=== PATIENT | male | born 1995 | race Caucasian/White ===

== ENCOUNTER → 2017-02-12 | Outpatient (CLI) | payer BC ==
[~2017-02-12] MED LIST: FAMO20TA11 PO; PRLSR20 PO; SUCR1TAB29 PO
[2017-02-12 16:21] LABS: BASO % 0.2 %; BASO ABS # 0.04 K/uL (0-0.2); COMPLETE YES; EOS % 0.4 %; HEMATOCRIT 43.6 % (42-52); IG% 0.5 %; LYMPH % 5.9 %; LYMPH ABS # 1.24 K/uL (1.2-3.4); MEAN CELL VOLUME 88.4 fL (80-100); MEAN CORPUSCULAR HEMOGLOBIN 30.8 pg (25-34); MEAN CORPUSCULAR HGB CONC 34.9 g/dl (32-36); MEAN PLATELET VOLUME 10.5 fL (7.4-10.4); MONO % 4.9 %; NEUT % 88.1 %; PLATELET COUNT 242 K/uL (130-400); RED BLOOD COUNT 4.93 M/uL (4.7-6.1); WHITE BLOOD COUNT 21.13 K/uL (4.8-10.8)
[2017-02-12 16:29] LABS: ALT/SGPT 50 U/L (12-78); AMYLASE 34 U/L (25-115); AST/SGOT 24 U/L (15-37); BLOOD UREA NITROGEN 16 mg/dl (7-18); BUN/CREATININE RATIO 15.8 (10-20); CALCIUM 9.6 mg/dl (8.5-10.1); CARBON DIOXIDE 27 mmol/L (21-32); CHLORIDE 103 mmol/L (98-107); CREATININE 1.02 mg/dl (0.60-1.40); GLUCOSE 78 mg/dl (70-99); POTASSIUM 3.9 mmol/L (3.5-5.1); SODIUM 138 mmol/L (136-145)
[2017-02-12 16:32] LABS: ALB/GLOB RATIO 1.4 (0.9-2); ALKALINE PHOSPHATASE 57 U/L (45-117)
== END | disposition home or self-care (01) ==
LOC: C.LABSPEC 15:54
PROVIDERS: ATTEND Family Medicine
DX: R10.84 Generalized abdominal pain (principal)

== ENCOUNTER 2017-02-13 18:35 | Emergency (ER) | payer BC ==
[~2017-02-13] VITALS: Ht 170.2 cm; Wt 78.9 kg
[2017-02-13 18:42] VITALS: TEMP 36.8; Ht 170.2 cm; Wt 78.9 kg
[2017-02-13] MEDS ORDERED: KETOROLAC TROMETHAMINE 30 MG/ML VIAL IV STA (19:15)
--- NOTE | 2017-02-13 19:43 | DIAGNOSTIC IMAGING REPORT ---
CHEST ONE VIEW PORTABLE CLINICAL HISTORY: 21 years-old Male presenting with chest pain. TECHNIQUE: Portable upright AP view of the chest was obtained. COMPARISON: None. FINDINGS: Cardiomediastinal silhouette normal. Lungs and pleural spaces clear. Osseous structures normal. Upper abdomen normal. IMPRESSION: 1. No acute cardiopulmonary disease. Electronically signed by: Mason Boucher M.D. 02/13/2017 7:41 PM Dictated Date/Time: 02/13/2017 7:41 PM
[2017-02-13 20:06] LABS: ALT/SGPT 45 U/L (12-78); BLOOD UREA NITROGEN 16 mg/dl (7-18); BUN/CREATININE RATIO 16.8 (10-20); CALCIUM 8.9 mg/dl (8.5-10.1); CARBON DIOXIDE 28 mmol/L (21-32); CHLORIDE 106 mmol/L (98-107); CREATININE 0.92 mg/dl (0.60-1.40); GLUCOSE 93 mg/dl (70-99); POTASSIUM 3.6 mmol/L (3.5-5.1); SODIUM 140 mmol/L (136-145)
[2017-02-13 20:11] LABS: ALKALINE PHOSPHATASE 49 U/L (45-117); AST/SGOT 23 U/L (15-37)
[2017-02-13] MEDS ORDERED: PRLSR20 PO (20:32)
[2017-02-13] MEDS ORDERED: SUCR1TAB29 PO (20:32)
[2017-02-13 20:59] LABS: BASO % 0.6 %; BASO ABS # 0.05 K/uL (0-0.2); COMPLETE YES; EOS % 2.4 %; HEMATOCRIT 42.2 % (42-52); IG% 0.1 %; LYMPH % 23.9 %; LYMPH ABS # 1.86 K/uL (1.2-3.4); MEAN CELL VOLUME 87.9 fL (80-100); MEAN CORPUSCULAR HEMOGLOBIN 31.7 pg (25-34); MEAN PLATELET VOLUME 10.3 fL (7.4-10.4); MONO % 9.5 %; NEUT % 63.5 %; PLATELET COUNT 243 K/uL (130-400); WHITE BLOOD COUNT 7.78 K/uL (4.8-10.8)
--- NOTE | 2017-02-13 21:32 | DIAGNOSTIC IMAGING REPORT ---
ABDOMEN 2 VIEWS HISTORY: 21 years-old Male abd pain acute generalized abdominal pain COMPARISON: Chest radiograph 02/13/2017 TECHNIQUE: Upright and supine views of the abdomen FINDINGS: No pneumoperitoneum on the upright projection. The bowel gas pattern is nonobstructive. Moderate formed stool of the ascending colon noted. No urolith. No organomegaly or fracture. IMPRESSION: 1. Nonobstructive bowel gas pattern without pneumoperitoneum. 2. No urolith identified. The above report was generated using voice recognition software. It may contain grammatical, syntax or spelling errors. Electronically signed by: Pal Mcintosh M.D. 02/13/2017 9:30 PM Dictated Date/Time: 02/13/2017 9:29 PM
[2017-02-13] MEDS ORDERED: FAMO20TA11 PO (21:49)
[2017-02-13 22:02] VITALS: BP 122/61; PULSE 67; O2SAT 99
--- NOTE | 2017-02-13 22:12 | EMERGENCY ROOM VISIT NOTE ---
History Report prepared by Jodee: Mohan Dunn Under the Supervision of: Dr. Danny Gonzalez D.O. First contact with patient: 19:08 Chief Complaint: CARDIAC ASSESSMENT Stated Complaint: CHEST PAIN,SOB History of Present Illness The patient is a 21 year old male who presents to the Emergency Room with complaints of intermittent epigastric abdominal pain pain beginning five days ago. The patient states that his pain has moved towards the left side. He was seen by his PCP yesterday for his symptoms and was scheduled for an ultrasound. He had his abdominal ultrasound this morning which was normal. The patient states that his pain can be present for one hour to a few minutes at a time. He states that he experienced some shortness of breath since two days ago and feels that it is present along with his pain. His abdominal pain is worsened with deep breathing. Patient denies swelling of calves, recent trips, history of immobilization or recent surgery, prior history of DVT, hemoptysis, history of malignancy, history of smoking, or control/estrogen use. Patient denies diabetes, hypertension, hyperlipidemia, CAD, history of sudden at a young age, and smoking. The patient's pain is not worsened with eating or drinking. He also denies any cough, runny nose, bloody stool, or diarrhea. He notes that his left chest felt sore to the touch a few days ago, but feels that it might be related to playing football. Source of History: patient Onset: Five days ago Position: abdomen (epigastric) Timing: intermittent Modifying Factors (Worsening): breathing (deep) Associated Symptoms: + SOB (beginning two days ago), No fevers, No cough, No hematochezia, No diarrhea Note: The patient denies leg swelling. Review of Systems See HPI for pertinent positives & negatives. A total of 10 systems reviewed and were otherwise negative. Past Medical & Surgical Medical Problems: (1) No Known Active Medical Problems Family History No pertinent family history stated. Social History Smoking Status: Never Smoker Housing Status: lives with family Current/Historical Medications Scheduled Famotidine (Pepcid), 20 MG PO DAILY Omeprazole (Prilosec), 1 TAB PO DAILY Sucralfate (Carafate), 1 GM PO ACHS Allergies Coded Allergies: Penicillins (Verified Allergy, Intermediate, "HAND SWELLING", 09/18/15) Physical Exam Vital Signs Date Time Temp Pulse Resp B/P (MAP) Pulse Ox O2 Delivery O2 Flow Rate FiO2 02/13/17 22:02 67 20 122/61 99 02/13/17 20:24 80 02/13/17 20:16 71 20 118/65 97 Room Air 02/13/17 19:26 98 Room Air 02/13/17 18:42 36.8 76 20 139/75 97 Room Air Physical Exam GENERAL: Sitting up in bed, alert, well appearing, well nourished, no distress, non-toxic EYE EXAM: normal conjunctiva. OROPHARYNX: no exudate, no erythema, lips, buccal mucosa, and tongue normal and mucous membranes are moist NECK: supple, no nuchal rigidity, no adenopathy, non-tender LUNGS: Clear to auscultation. Normal chest wall mechanics HEART: no murmurs, S1 normal and S2 normal CHEST: acute reproducible tenderness along the left upper sternum. ABDOMEN: abdomen soft, non-tender, normo-active bowel sounds, no masses, no rebound or guarding. BACK: Back is symmetrical on inspection and there is no deformity, no midline tenderness, no CVA tenderness. SKIN: no rashes and no bruising UPPER EXTREMITIES: upper extremities are grossly normal. LOWER EXTREMITIES: No pitting edema. Calves equal bilaterally. NEURO EXAM: Normal sensorium, cranial nerves II-XII grossly intact, normal speech, no gross weakness of arms, no gross weakness of legs. Medical Decision & Procedures ER Provider Diagnostic Interpretation: Radiology results as stated below per my review and the radiologist's interpretation: CHEST ONE VIEW PORTABLE FINDINGS: Cardiomediastinal silhouette normal. Lungs and pleural spaces clear. Osseous structures normal. Upper abdomen normal. IMPRESSION: 1. No acute cardiopulmonary disease. Electronically signed by: Mason Boucher M.D. 02/13/2017 7:41 PM ABDOMEN 2 VIEWS FINDINGS: No pneumoperitoneum on the upright projection. The bowel gas pattern is nonobstructive. Moderate formed stool of the ascending colon noted. No urolith. No organomegaly or fracture. IMPRESSION: 1. Nonobstructive bowel gas pattern without pneumoperitoneum. 2. No urolith identified. The above report was generated using voice recognition software. It may contain grammatical, syntax or spelling errors. Electronically signed by: Pal Mcintosh M.D. 02/13/2017 9:30 PM Laboratory Results 11/10/17 19:26 Red Blood Count 4.80, Mean Corpuscular Volume 87.9, Mean Corpuscular Hemoglobin 31.7, Mean Corpuscular Hemoglobin Concent 36.0, Mean Platelet Volume 10.3, Neutrophils (%) (Auto) 63.5, Lymphocytes (%) (Auto) 23.9, Monocytes (%) (Auto) 9.5, Eosinophils (%) (Auto) 2.4, Basophils (%) (Auto) 0.6, Neutrophils # (Auto) 4.93, Lymphocytes # (Auto) 1.86, Monocytes # (Auto) 0.74, Eosinophils # (Auto) 0.19, Basophils # (Auto) 0.05 02/13/17 19:26 Test 02/13/17 19:26 White Blood Count 7.78 K/uL (4.8-10.8) Red Blood Count 4.80 M/uL (4.7-6.1) Hemoglobin 15.2 g/dL (14.0-18.0) Hematocrit 42.2 % (42-52) Mean Corpuscular Volume 87.9 fL (80-100) Mean Corpuscular Hemoglobin 31.7 pg (25-34) Mean Corpuscular Hemoglobin Concent 36.0 g/dl (32-36) Platelet Count 243 K/uL (130-400) Mean Platelet Volume 10.3 fL (7.4-10.4) Neutrophils (%) (Auto) 63.5 % Lymphocytes (%) (Auto) 23.9 % Monocytes (%) (Auto) 9.5 % Eosinophils (%) (Auto) 2.4 % Basophils (%) (Auto) 0.6 % Neutrophils # (Auto) 4.93 K/uL (1.4-6.5) Lymphocytes # (Auto) 1.86 K/uL (1.2-3.4) Monocytes # (Auto) 0.74 K/uL (0.11-0.59) Eosinophils # (Auto) 0.19 K/uL (0-0.5) Basophils # (Auto) 0.05 K/uL (0-0.2) RDW Standard Deviation 41.2 fL (36.4-46.3) RDW Coefficient of Variation 12.8 % (11.5-14.5) Immature Granulocyte % (Auto) 0.1 % Immature Granulocyte # (Auto) 0.01 K/uL (0.00-0.02) D-Dimer < 190 ug/L FEU (0-500) Anion Gap 6.0 mmol/L (3-11) Est Creatinine Clear Calc Drug Dose 119.8 ml/min Estimated GFR () 138.3 Estimated GFR (Non- 119.3 BUN/Creatinine Ratio 16.8 (10-20) Calcium Level 8.9 mg/dl (8.5-10.1) Total Bilirubin 0.5 mg/dl (0.2-1) Direct Bilirubin 0.2 mg/dl (0-0.2) Aspartate Amino Transf (AST/SGOT) 23 U/L (15-37) Alanine Aminotransferase (ALT/SGPT) 45 U/L (12-78) Alkaline Phosphatase 49 U/L (45-117) Troponin I < 0.015 ng/ml (0-0.045) Total Protein 7.5 gm/dl (6.4-8.2) Albumin 4.2 gm/dl (3.4-5.0) Lipase 136 U/L (73-393) Laboratory results per my review. Medications Administered Medications (Trade) Dose Ordered Sig/Nae Route Start Time Stop Time Status Last Admin Dose Admin Ketorolac Tromethamine (Toradol Inj) 30 mg NOW STAT IV 02/13/17 19:15 02/13/17 19:17 DC 02/13/17 19:30 30 MG ECG Indication: chest pain Rate (beats per minute): 68 Rhythm: sinus rhythm Findings: no acute ischemic change, no ectopy, other (Normal axis. ) ED Course ED COURSE: Vital signs were reviewed and showed mild hypertension. The patients medical record was reviewed The above diagnostic studies were performed and reviewed. ED treatments and interventions as stated above. 1908: The patient was evaluated in room C6. A complete history and physical examination was performed. 1914: Ordered Toradol Inj 30 mg IV. 2101: I updated the patient on his results. 2249: Upon reevaluation, the patient is resting comfortably. I discussed my findings with the patient and he understands and agrees with the treatment plan. Based on the patients age, coexisting illnesses, exam and lab findings the decision to treat as an outpatient was made. The patient remained stable while under my care. The patient appeared well at the time of discharge. Medical Decision Differential diagnoses includes but is not limited to gastritis, peptic ulcer disease, GERD, gallbladder disease, pancreatitis, small bowel obstruction, acute coronary syndrome, pericarditis, ischemic bowel, irritable bowel disease, irritable bowel syndrome, appendicitis, diverticulitis, malignancy, hernia, urinary tract infection, torsion, perforation, trauma, infectious, acute coronary syndrome, myocardial infarction, pericarditis, pulmonary embolus, aortic dissection, pneumonia, pneumothorax, musculoskeletal, shingles, esophageal. EMR reviewed. Abdominal ultrasound from earlier today was negative. Patient is a 21-year-old male who presents to ER for abdominal pain associated with chest pain. Symptoms have been present for the past 48 hours. No PE risk factors and with a negative d-dimer and this was not pursued any further. EKG was not ischemic. No cardiac risk factors. Troponin was negative with pain present over the 6 hours. Chest x-ray unremarkable. Abdominal exam was benign. On his history of present illness he does point to his epigastric region where the pain occurs. Ultrasound was reviewed and was unremarkable of the gallbladder and pancreas and kidneys. He has no urinary symptoms and consequently UA was not obtained as it was epigastric abdominal pain and chest pain. CBC all BMP, LFTs, bilirubin and lipase is unremarkable. CBC was reviewed from yesterday and shows a leukocytosis of 20,000. Uncertain of the true cause of this. There is no obvious source of infection. With his benign exam I did not feel CT was warranted at this time. The patient family were updated bedside. He was discharged to follow-up with PCP as an outpatient for further workup. Did recommend Pepcid for possible gastritis/PUD. Discussed with Pt concerning signs and symptoms to watch out for. Pt was instructed to follow up with their PCP and discussed with the patient their option to return to the ED at anytime for persistent or worsening symptoms. The appropriate anticipatory guidance and out-patient management, including indications for return to the emergency department, were explained at length to the patient and understood. Medication Reconcilliation Current Medication List: was personally reviewed by me Blood Pressure Screening Patient's blood pressure: Elevated blood pressure Blood pressure disposition: Elevated BP felt to be situational Impression Primary Impression: Abdominal pain Additional Impression: Chest pain Scribe Attestation The scribe's documentation has been prepared under my direction and personally reviewed by me in its entirety. I confirm that the note above accurately reflects all work, treatment, procedures, and medical decision making performed by me. Departure Information Dispostion Home / Self-Care Prescriptions Famotidine (Pepcid) 20 Mg Tab 20 MG PO DAILY for 20 Days, #20 TAB Prov: Danny Gonzalez, 02/13/17 Referrals Antoine Gomez DO (PCP) Forms IMPORTANT VISIT INFORMATION Patient Instructions Abdominal Pain - [facility], Chest Pain - [facility], [facility] Additional Instructions Please follow up with your primary care doctor with in the next 24 hours. Any worsening of your symptoms, please return to the ED immediately. This includes any fevers greater than 100.4, worsening pain, chest pain, shortness breath, persistent nausea, vomiting, unable to eat or drink, or any other concerning signs or symptoms from your standpoint. Please take Pepcid as prescribed for purchase [id number] daily. Problem Qualifiers Primary Impression: Abdominal pain Abdominal location: unspecified location Qualified Codes: R10.9 - Unspecified abdominal pain Additional Impression: Chest pain Chest pain type: unspecified Qualified Codes: R07.9 - Chest pain, unspecified
== END 2017-02-13 22:03 | disposition home or self-care (01) ==
LOC: C.EDB 18:36 → C.EDC 22:03
DX: R10.13 Epigastric pain (principal); R07.9 Chest pain, unspecified; Z79.899 Other long term (current) drug therapy; Z88.0 Allergy status to penicillin

== ENCOUNTER → 2017-02-13 | Outpatient (CLI) | payer BC ==
--- NOTE | 2017-02-13 07:25 | DIAGNOSTIC IMAGING REPORT ---
ABDOMEN COMPLETE (US) HISTORY: Pain ABDOMINAL PAIN. COMPARISON: None. FINDINGS: Pancreas: The pancreas demonstrates a normal echotexture. Liver: Unremarkable. Gallbladder: No gallbladder wall thickening. No gallstones. CBD: 4 mm Kidneys: No hydronephrosis. Spleen: Normal in size. Aorta: Normal in caliber. IVC: Patent. IMPRESSION: No significant abnormality identified within the within the abdomen. The above report was generated using voice recognition software. It may contain grammatical, syntax or spelling errors. Electronically signed by: Bebeto Mariee M.D. 02/13/2017 7:23 AM Dictated Date/Time: 02/13/2017 7:22 AM
== END | disposition home or self-care (01) ==
LOC: C.ULTR 06:46
PROVIDERS: ATTEND Family Medicine
DX: R10.84 Generalized abdominal pain (principal)